=== PATIENT | male | born 1945 | race Caucasian/White ===

== ENCOUNTER 2017-01-22 13:27 | Inpatient (IN) | payer MEDICARE, OTHER ==
[~2017-01-22] VITALS: Ht 172.7 cm; Wt 86.6 kg
--- NOTE | 2017-01-24 16:17 | ER ---
ADMIT: 01/22/2017 RM/LOC: 405 [facility] MR#: [id number] [address] [facility] [address] [place], [place] [address] ANNE SOLER [address] [place] [id number] Emergency Room Report SEX: M AGE: 71 : 1945 DATE: 01/22/2017 ADDENDUM: A 71-year-old white male, who had recent surgery at the [facility] on his left femur because he had an infection there. I think he had a previous karlene that became infected, they took it out and replaced it with a karlene. He was discharged on the . He has been doing fine except he had developed diarrhea there, after he was constipated and then he developed nausea and vomiting for the last 3 days. He had been doing up until that point, so essentially for the last 3 days, he has nausea, vomiting, and diarrhea. He cannot keep up with that. His potassium was 2.9 here. I do not know the underlying reason that he had the vomiting, but he is to the point where he cannot keep anything down. He was just dry heaving. We had given him 2 L of fluid without problem. We also gave him 8 of Zofran IV. We gave him Reglan 5 mg IV, Ativan 1 mg IM, Pepcid 20 mg IV and he was much better after that. He did have a lactic that was up at 3.1; however, again he just had an infection. He has been receiving rifampin and Ancef postop. He also has a chronic bone infection as well. At this time, I spoke with Dr. Davis after talking to the Ortho. We did undress his wounds. We redressed it, the wound looked fine. We do not believe that anything there is causing problem. He has not had narcotics in many days and we do not think that was the cause of it. He is taking Ancef and oral rifampin, which is a possible side effect of the rifampin. Again clarifying what he had done, they had pulled the karlene out and then had put in an antibiotic nail in there. Unknown type of antibiotic. The bone had been pulled out for sometime, but evidently this was the same bone that got infected. Either which way he needs to come in because we cannot replace his potassium quickly, especially since he has just had nausea and vomiting as well as [place] is 60 miles [place] outside of [place]. I spoke to Dr. Davis, she will admit him. CONDITION ON DISCHARGE/ADMISSION: Fair. Juan Segura MD/ bryan JOB #: [id number] CC: Roz Davis MD, Attending Physician Roz Davis MD, Family Physician
[2017-01-27] MEDS ORDERED: TYLENOL EXTRA500 M1 PO (11:08)
[2017-01-27] MEDS ORDERED: LOVENOX40 MG/0.4 SQ (11:08)
[2017-01-27] MEDS ORDERED: RIFADIN300 MG PO (11:08)
[2017-01-27] MEDS ORDERED: NORVASC DPS10 MG PO (11:09)
[2017-01-27] MEDS ORDERED: PEPCID DPS20 MG PO (11:09)
[2017-01-27] MEDS ORDERED: ZOFRAN4 MG PO (11:09)
[2017-01-27] MEDS ORDERED: ANCEF,KEFZOL-DPS1 GM IV (11:09)
[2017-01-27] MEDS ORDERED: ECOTRIN81 MG PO (11:09)
--- NOTE | 2017-01-27 21:46 | HP ---
ADMIT: 01/22/2017 RM/LOC: 405 [facility] MR#: [id number] [address] [address] TIM SOLER [address] [place] [address] History and Physical SEX: M AGE: 71 : 1945 Corrected: 01/23/2017 0608 njv DATE OF SERVICE: 01/22/2017 CHIEF COMPLAINT: Refractory nausea, vomiting, and hypokalemia. HISTORY OF PRESENT ILLNESS: Tim is a 71-year-old white gentleman from [place], whose history dates back to approximately 1983. At that time, he had a comminuted distal left femur fracture and a compound tibial fracture. He had an intramedullary nailing performed, which subsequently developed an infection. He had an infection of his left femur. This required hardware removal in 1993 and 1994. He subsequently was on and off the antibiotics according to records and noted intermittent left lower extremity warm and redness. He had an episode of left patellar fracture, requiring an ORIF in 1999. About 2 weeks ago, he had a blister formed on the back of his knee. Antibiotics were given with persistent issues. He on evaluation was found to have osteomyelitis of the distal femur and a sample at some point revealed methicillin-sensitive Staph aureus. He was sent to Dr. Grimaldo, who subsequently referred him to [facility]. He was seen by Dr. Bañuelos of Orthopedics and was scheduled and underwent an intramedullary nailing with an antibiotic impregnated nail on 01/10/2017. Postoperatively, he was followed by Infectious Disease, who initially had suggested nafcillin and rifampin for 6 weeks at the time of discharge. The nafcillin was subsequently changed to high dose NSAIDs at the time of discharge, most likely due to the postop antibiotic administration. He was discharged on the 18th to home under the care of his family and [facility]. On the discharge summary, it was said that he was partial weightbearing and in the phone call form, I believe the nurse navigator, it was said that he was to be nonweightbearing on his left lower extremity. We will need to have therapy clarify this. He also was to have dressing changes every other day, was a 4 x 4, and an Neymar wrap. He was to wear an immobilizer at all times. The plan was 6 weeks of IV antibiotics and then returning for removal of the antibiotic- impregnated intramedullary nail at that time. Once he got home, he began having some difficulties with nausea. He was taking some oxycodone for pain, but only took maybe 1 or 2 on occasion. He was taking two 500 mg Tylenol 3 times a day with his rifampin dosage, which was given twice a day. He noticed quite a bit of gas and belching and reflux symptoms. He was given some ondansetron 4 mg to take on occasion, which he usually would try to take in the morning with the morning rifampin. His course was complicated by difficulty with his PICC line. A few days after discharge requiring Cathflo and a trip to the [facility]. He had finally got working and his situation was complicated from then on with progressive nausea. He had episodes of nausea and vomiting that were refractory on the day of admission with episodes almost every 2 hours. Home medications were not helping. He was brought down to the emergency room, where he was found to have a potassium of 2.9, lactic acid of 3.1, creatinine of 1.2. He was given multiple medications including Ativan, Pepcid, Zofran, Reglan, and finally he felt better. He is admitted to myself at [facility] to address these issues. He has not had any fevers. He just has not been feeling well. ADMIT: 01/22/2017 RM/LOC: 405 [facility] MR#: [id number] [facility] [address] [address] TIM SOLER [address] [place] [address] History and Physical SEX: M AGE: 71 : 1945 PAST MEDICAL HISTORY: Hypertension. Comminuted distal left femur fracture and compound tibial fracture in 1983, complicated by infection and removal of hardware in 1993, and subsequent development of methicillin-sensitive Staph aureus. Osteomyelitis, requiring intramedullary nail with antibiotic- impregnated karlene on 01/10/2017. Left patellar fracture in 1999, status post ORIF. Prostate cancer, status post robotic surgery in the past. GERD. Murmur reported per [facility]. Hypertension. Healthcare maintenance-colonoscopy in the past. MEDICATIONS: 1. Tylenol 500 mg 2 pills t.i.d. 2. Bisacodyl EC 5 one to two daily p.r.n. 3. Ancef 2000 IV q.8. 4. Lovenox 40 mg daily. 5. Zofran 4 mg every 8 hours p.r.n. 6. Oxycodone 5 one to two every 4 p.r.n., which he has not taken for a few days. 7. MiraLAX b.i.d. p.r.n. 8. Rifampin 300 q.12. 9. Senna 1-2 as needed. 10.Norvasc 10 mg daily. 11.Aspirin 81 mg daily. 12.Lovenox 40 mg subcu daily. 13.Fish oil 1000 t.i.d. 14.Omeprazole 20 daily. ALLERGIES: IODINE, CAUSING A DERMATITIS. SOCIAL HISTORY: Former smoker, quit 06/30/2004 and had been up to 3/4 of a pack a day. He previously chewed, but quit 09/30/2012. . FAMILY HISTORY: No evidence of infection or otherwise. We will need to confirm his family history in the morning. Nothing of significance. REVIEW OF SYSTEMS: Left leg does bother him. Mild pain, but nothing he can handle. He has been doing okay at home, but a little overwhelmed. PHYSICAL EXAMINATION: VITAL SIGNS: Blood pressure 120/79, pulse 103, respirations 20, temp 98.3. GENERAL: This is a well-developed, well-nourished white male, whose affect is appropriate. SKIN: Warm and dry. HEENT: Normocephalic, atraumatic. Anicteric. Mucous membranes are moist. NECK: Supple. LUNGS: Clear to auscultation. Nonlabored. CARDIOVASCULAR: Regular with possible 1/6 murmur. Best heard at [facility]. ABDOMEN: Soft. ADMIT: 01/22/2017 RM/LOC: 405 [facility] MR#: [id number] [address] [address] TIM SOLER [address] [place] [address] History and Physical SEX: M AGE: 71 : 1945 AND RECTAL: Deferred. EXTREMITIES: With left leg in an immobilizer, right no edema. IMPRESSION: 1. Refractory nausea and vomiting. 2. Hypokalemia. 3. Chronic osteomyelitis, status post intramedullary pinning with an antibiotic-impregnated nail on 01/10/2017, requiring 6 weeks of IV Ancef and rifampin. 4. Hypertension. 5. Gastroesophageal reflux disease. DISCUSSION: We will go ahead and admit and continue with IV fluids and other IV medications. We will probably need to contact the [facility] and let them know he is here if there are any thoughts about what to do. I suspect his issue is the rifampin. We will treat a little more aggressively for GERD. PLAN: See chart. Roz Davis MD/ bryan JOB #: [id number] CC: Roz Davis, Attending Physician Roz Davis, Family Physician MD Adrien Dela Cruz MD [address] [place] [address], [address] [place] [address] Courtney Stringer MD [id number] [facility] [place] [address] Corrected: 01/23/2017 0608 njariel
--- NOTE | 2017-01-27 21:51 | DS ---
ADMIT: 01/22/2017 RM/LOC: 405 [facility] MR#: [id number] [address] [address] TIM SOLER [address] [place] [address] Discharge Summary SEX: M AGE: 71 : 1945 ADMISSION DATE: 01/22/2017 DISCHARGE DATE: 01/25/2017 DIAGNOSES: 1. Nausea and vomiting. 2. Hypokalemia. 3. Methicillin sensitive Staph aureus osteomyelitis of the distal left femur, status post antibiotic impregnated nailing recently at [facility]. 4. Diarrhea. 5. Hypertension. 6. Gastroesophageal reflux disease. 7. Weakness. PROCEDURE: None. REASON FOR HOSPITALIZATION: Nausea vomiting and hypokalemia. See dictated H and P. LABORATORY AND X-RAY DATA: Sodium 141, potassium was 2.9 up to 3.7, chloride 108, CO2 26, BUN was 5, creatinine 1.2 down to 0.9, glucose variable, phosphorus 2.4, total bilirubin was 0.3, total protein 5.9, albumin 2.4, alkaline phosphatase 68, AST 23, ALT 15, magnesium 2.5, CK 46, troponin less than 0.015. INR 1.08. White count 11.8 down to 6.6, hemoglobin 13.4 down to 10, platelet count 625 down to 449. Sedimentation rate 73, lactic acid was 3.1 down to 1, procalcitonin was less than 0.05. 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 His medications were held for the most part. He was hydrated and his potassium was supplemented. Pepcid was given IV. His nausea and vomiting did begin to settle down. After his stomach did quiet down, decreased his IV fluids and advanced his diet. Potassium was improved. We did then start rifampin on 01/24/2017 to see how he would do. He did have some mild recurrence of his nausea but nothing significant enough that I think it can not be handled by some as needed Zofran and changes in his fluid intake. We discussed the options. On 01/25, he was stable for dismissal. DISCHARGE MEDICATIONS: Discharge medications include: 1. Tylenol 500 mg two every six p.r.n. 2. Rifampin 300 b.i.d. 3. Lovenox 40 mg subcu daily. 4. Norvasc 10 mg daily. 5. Aspirin 81 mg daily with food. 6. Pepcid 20 b.i.d. 7. Ancef 2 g IV every eight per [facility]. 8. Zofran 4 mg every six p.r.n. with nausea and vomiting. DISCHARGE INSTRUCTIONS: He will follow up with no vascular or he will follow ADMIT: 01/22/2017 RM/LOC: 405 [facility] MR#: [id number] [address] [address] [place] [address] Discharge Summary SEX: M AGE: 71 : 1945 up [facility] as already ordered. He will also see Dr. Corona in 1- 2 weeks. Overall prognosis is fair. Time spent was 45 minutes. Roz Davis MD/ daphnieg JOB #: [id number] CC: Roz Davis MD, Attending Physician Roz Davis MD, Family Physician Fermin Corona . [facility] YVONNE Olson MD
== END 2017-01-25 15:38 | disposition home health service (06) | DRG 392 ==
LOC: ER 13:27 → 4PCU 18:05
PROVIDERS: ADMIT Internal Medicine
DX: R11.2 Nausea with vomiting, unspecified (principal); M86.68 Other chronic osteomyelitis, other site; B95.61 Methicillin susceptible Staphylococcus aureus infection as the cause of diseases classified elsewhere; R19.7 Diarrhea, unspecified; E87.6 Hypokalemia; K21.9 Gastro-esophageal reflux disease without esophagitis; I10 Essential (primary) hypertension; R01.1 Cardiac murmur, unspecified; Z85.46 Personal history of malignant neoplasm of prostate; Z79.82 Long term (current) use of aspirin; Z87.891 Personal history of nicotine dependence